=== PATIENT | female | born 1950 | race Caucasian/White ===

== ENCOUNTER → 2018-09-17 12:53 | Emergency (ER) | payer BC ==
[~2018-09-17 12:53] MED LIST: Famotidine IV* 10 MG/ML 2 ML (20 mg) IV SLOW PU ONE; NS 0.9% 1000 ML* 1,000 ML IV ONE
--- NOTE | 2018-09-17 13:26 | ED ---
Allergic Reaction/Systemic - HPI Summary HPI Summary: Patient is a 68 y/o F presenting to ED with complaints of allergic reaction. She was seen at sports medicine today, was given cortisone shot to left hip. She states that she went home, ate salmon and vegetables, began to experience diffuse hives, light-headedness, and hoarse voice. She denies SOB and wheezing but reports having had some throat tightness. Patient went back to sports medicine. Dr. Esposito evaluated patient, she was given 0.3 mg epinephrine. She notes that medication helped. EMS was called, who provided 50 mg Benadryl IVP. She states that she has had cortisone shot 3-4 times previously with no reactions. She reports no urinary Sx. Allergy to trees, grass, and pollen is endorsed. PSHx of wisdom teeth removal, tonsillectomy. No FMHx of cardiac disease, endorses FMHx of prostate CA. On triage, associated severity is rated 2 /10, nothing is noted to aggravate/alleviate Sx. Home medications and allergies are reviewed. Allergies Allergy/AdvReac Type Severity Reaction Status Date / Time No Known Allergies Allergy Verified 11/28/12 13:43 - History of Current Complaint Chief Complaint: EDAllergicReaction Time Seen by Provider: 09/17/18 13:15 Hx Obtained From: Patient Onset/Duration: Sudden Onset, Started hours ago, Resolved Timing: Lasting Hours Severity Currently: Mild - 2/10 Pain Intensity: 2 Pain Scale Used: 0-10 Numeric - 2/10 Location: Diffuse - hives Character: Hives Aggravating Factor(s): Nothing Alleviating Factor(s): Epinephrine Associated Signs And Symptoms: Positive: Lightheadedness, Throat Tightening, Other: - POSITIVE - HOARSE VOICE, HIVES; NEGATIVE - WHEEZING, SOB. Negative: Difficulty Breathing - Allergies/Home Medications Allergies/Adverse Reactions: Allergies Allergy/AdvReac Type Severity Reaction Status Date / Time No Known Allergies Allergy Verified 11/28/12 13:43 PMH/Surg Hx/FS Hx/Imm Hx Cardiovascular History: Denies: Hx Pacemaker/ICD Respiratory History: Reports: Hx Asthma Musculoskeletal History: Denies: Hx Rheumatoid Arthritis, Hx Osteoporosis - OSTEOPENIA Sensory History: Denies: Hx Legally Blind, Hx Deafness, Hx Hearing Aid Opthamlomology History: Denies: Hx Legally Blind EENT History: Denies: Hx Deafness Psychiatric History: Denies: Hx Panic Disorder - Cancer History Hx Chemotherapy: No Hx Radiation Therapy: No - Surgical History Surgery Procedure, Year, and Place: wisdom teeth; TONSILLECTOMY Infectious Disease History: No Infectious Disease History: Denies: Traveled Outside the [place] in Last 30 Days - Family History Known Family History: Positive: Other - FMHx of prostate cancer Negative: Cardiac Disease - Social History Alcohol Use: None Substance Use Type: Reports: None Smoking Status (MU): Never Smoked Tobacco Review of Systems ENT: Other - POSITIVE - THROAT TIGHTNESS, HOARSE VOICE Positive: Other - NEGATIVE - WHEEZING . Negative: Shortness Of Breath Positive: no symptoms reported - URINARY Skin: Other - POSITIVE - DIFFUSE HIVES Neurological: Other - POSITIVE - LIGHT-HEADEDNESS All Other Systems Reviewed And Are Negative: Yes Physical Exam - Summary Physical Exam Summary: Appearance: Well-appearing, no pain distress, well-nourished, normal phonation Skin: Warm, color reflects adequate perfusion, dry, no rash, no urticaria Head: Normal Head/Face inspection, atraumatic Eyes: Conjunctiva clear, ENT: Normal inspection; no uvula, no pharyngeal edema Neck: Supple, no nodes, no JVD Respiratory: Lungs clear, normal breath sounds, no respiratory distress, no wheezes Cardio: RRR, No murmur, pulses normal, brisk capillary refill Abdomen: Soft, nontender Bowel sounds: Present Musculoskeletal: Strength Intact/ROM intact, no calf tenderness, no edema. Psychological: Normal Neuro: Alert, muscle tone normal, no focal deficit Triage Information Reviewed: Yes Vital Signs On Initial Exam: Initial Vitals Temp Pulse Resp BP Pulse Ox 96.9 F 103 18 128/65 97 09/17/18 12:57 09/17/18 12:57 09/17/18 12:57 09/17/18 12:57 09/17/18 12:57 Vital Signs Reviewed: Yes Diagnostics - Vital Signs Vital Signs Temp Pulse Resp BP Pulse Ox 09/17/18 12:57 96.9 F 103 18 128/65 97 - Laboratory Lab Statement: Any lab studies that have been ordered have been reviewed, and results considered in the medical decision making process. Re-Evaluation - Re-Evaluation First Eval Re-Evaluation Time: 14:40 Change: Improved Comment: Patient reports no chest pain, no SOB, hives have resolved. She will be discharged to home, she is agreeable with this. Allergic Reaction Course/Dx - Course Course Of Treatment: Patient is a 68 y/o F presenting to ED with complaints of allergic reaction. She was seen at sports medicine today, was given cortisone shot to left hip. She states that she went home, ate salmon and vegetables, began to experience diffuse hives, light-headedness, and hoarse voice. She denies SOB and wheezing but reports having had some throat tightness. Patient went back to sports medicine. Dr. Esposito evaluated patient, she was given 0.3 mg epinephrine. She notes that medication helped. EMS was called, who provided 50 mg Benadryl IVP. She states that she has had cortisone shot 3-4 times previously with no reactions. She reports no urinary Sx. Allergy to trees, grass , and pollen is endorsed. PSHx of wisdom teeth removal, tonsillectomy. No FMHx of cardiac disease, endorses FMHx of prostate CA. On physical exam, normal phonation, no uvula or pharyngeal edema, no rash, no urticaria, no wheezes. During ED course, patient received fluids and Pepcid 40 mg IV. Patient reports no chest pain, no SOB, hives have resolved. She will be discharged to home, she is agreeable with this. - Diagnoses Provider Diagnoses: Anaphylactic reaction Discharge - Sign-Out/Discharge Documenting (check all that apply): Patient Departure - discharge - Discharge Plan Condition: Stable Disposition: HOME Patient Education Materials: General Allergic Reaction (ED) Referrals: Trina Yoon MD [Primary Care Provider] - 2 Days Additional Instructions: You were given epinephrine 0.3mg and benadryl by Dr. Esposito. In the ER you were given IV normal saline and famotidine (pepcid) as a histamine 2 svetlana. We did not give you IV steroids as we often do for an allergic reaction because you had this reaction after receiving the cortisone injection in your left hip. It would be unusual but you could be allergic to the cortisone, so we will not give further steroids. You could also be allergic to any medications that were included in the cortisone injection such as possibly a local anesthetic like lidocaine. You should check with Dr. Esposito, what other medications were in the cortisone injection. It is also possible that you are allergic to the salmon. So you should avoid all possible allergens until you have further evaluation. You should also continue the pepcid (prescribed to [facility] on [address]) 40mg orally for 5 days, and benadryl (diphenhydramine) 25-50mg orally four times a day (or every 6 hrs) for at least the next 48 hrs and then as needed. Return to the ER if you have any new or worsening symptoms. Dr. Hodgson also recommends that you see an cloth wire weaver, and this constitutes a referral to an cloth wire weaver. - Attestation Statements Document Initiated by Scribe: Yes Documenting Scribe: ARCADIO RODAS Provider For Whom Young is Documenting (Include Credential): LANE HODGSON MD Scribe Attestation: ARCADIO Parker, scribed for LANE HODGSON MD on 09/18/18 at 0003.
[2018-09-17 15:28] VITALS: BP 130/75
== END | disposition home or self-care (01) ==
LOC: ED 12:53
DX: T78.2XXA Anaphylactic shock, unspecified, initial encounter (principal); J45.909 Unspecified asthma, uncomplicated
CPT/HCPCS: 96361; 96374; 99282

== ENCOUNTER 2018-12-03 09:00 | Inpatient (IN) | payer BC ==
--- NOTE | 2018-11-25 14:19 | HP ---
Amended report to enter cosigning physician. HISTORY AND PHYSICAL: DATE OF ADMISSION/SURGERY: 12/03/18. DATE OF OFFICE VISIT: 11/25/18. SURGEON: Deya Perales MD* (dictated by JENNIFER Cardona). PROCEDURE: Left total hip arthroplasty. CHIEF COMPLAINT: Left hip pain. HISTORY OF PRESENT ILLNESS: Ms. Arce is a 68-year-old female with endstage osteoarthritis of the left hip. She has failed conservative treatment and elected to proceed with a left total hip arthroplasty. PAST MEDICAL HISTORY: Asthma. PAST SURGICAL HISTORY: Tonsillectomy, adenoidectomy, and wisdom teeth extraction. CURRENT MEDICATIONS: Tylenol as needed. ALLERGIES: To NSAIDs. FAMILY HISTORY: Family history of pancreatic cancer and dementia. SOCIAL HISTORY: She is a 68-year-old female. She lives with a partner. She does not smoke or use drugs, uses alcohol occasionally. REVIEW OF SYSTEMS: A complete 14-point review of systems was reviewed with the patient. It was all negative and noncontributory. She denies history of DVT, PE, hepatitis, HIV or anesthesia problems. PHYSICAL EXAMINATION GENERAL: She is well developed, well nourished, in no acute distress. VITAL SIGNS: She stands 5 feet 4 inches tall, weighs 184 pounds, her blood pressure 130/90, her heart rate is 96. HEENT: Normocephalic, atraumatic. NECK: Supple. No palpable lymph nodes. PULMONARY: Lungs are clear to auscultation bilaterally. CARDIO: Regular rate and rhythm. Strong S1, S2. ABDOMEN: Soft, nontender, nondistended. MUSCULOSKELETAL: Left lower extremity the skin is intact. There are no open wounds or abrasions. She walks with an antalgic type gait favoring her left hip. She has decreased internal and external rotation of the left hip. She has 2+ dorsalis pedis pulse. She is able to dorsiflex, plantarflex, and has intact sensation. NEUROLOGIC: She is alert and oriented x3. ASSESSMENT AND PLAN: Ms. Arce is a 68-year-old female with endstage osteoarthritis of the left hip. She has failed conservative treatment and elected to proceed with a left total hip arthroplasty. The surgery is scheduled for 12/03/[address] Perales discussed the risks and benefits of surgery at today's visit and all of her questions were answered. She will follow up with Dr. Perales 2 weeks after the surgery. JENNIFER CARDONA [id number]/CPS #: [id number] MTDD
[~2018-12-03 09:00] MED LIST changes: +Acetaminophen IV 1GM/100ML * 1,000 MG/100 ML VIAL IVPB ONE; +Buffered Lidocaine 1% SYRIN* 1 ML/SYRINGE INTRADERM ONE; +Dexamethasone IV* 4 MG/ML 1 ML (4 MG) IV SLOW PU ONE; +Famotidine IV* 10 MG/ML 2 ML (20 mg) IV ONE; -Famotidine IV* 10 MG/ML 2 ML (20 mg) IV SLOW PU ONE; +Gabapentin CAP(*) 300 MG PO ONE; +Lactated Ringers 1000 ML Bag* 1,000 ML IV SCH; -NS 0.9% 1000 ML* 1,000 ML IV ONE
[2018-12-03] MEDS ORDERED: KETAMINE HCL* 50 MG/ML 10 ML VIAL ONE (10:35)
[2018-12-03] MEDS ORDERED: fentaNYL* 50 MCG/ML 2 ML VIAL (100 MCG VIAL) ONE ×2 (10:35→15:35)
[2018-12-03] MEDS ORDERED: Midazolam* 1 MG/ML 5 ML VIAL (5 MG) ONE ×2 (10:35→13:45)
[2018-12-03] MEDS ORDERED: Ondansetron INJ* 2 MG/ML VIAL ONE (10:36)
[2018-12-03] MEDS ORDERED: Propofol* 10 MG/ML 20 ML BTL ONE (10:36)
[2018-12-03] MEDS ORDERED: Dexamethasone IV* 4 MG/ML 1 ML (4 MG) ONE (10:48)
[2018-12-03] MEDS ORDERED: Buffered Lidocaine 1% SYRIN* 1 ML/SYRINGE INTRADERM ONE (10:49)
[2018-12-03] MEDS ORDERED: Gabapentin CAP(*) 300 MG ONE (10:49)
[2018-12-03] MEDS ORDERED: Famotidine IV* 10 MG/ML 2 ML (20 mg) ONE (10:49)
[2018-12-03] MEDS ORDERED: ceFAZolin 2 GM in NS PREMIX(*) 2 GM/100 ML BAG IVPB ONE (10:49)
[2018-12-03] MEDS ORDERED: Acetaminophen IV 1GM/100ML * 100 ML ONE (11:26)
[2018-12-03] MEDS ORDERED: Ropivacaine (OR use only) 2 MG/ML 10 ML ONE (12:02)
[2018-12-03] MEDS ORDERED: ROPIVACAINE 5 MG/ML 30 ML BTL (0.5%) ONE (12:02)
[2018-12-03] MEDS ORDERED: Bupivacaine 0.5% SDV PF* 30ML VIAL ONE (12:33)
[2018-12-03] MEDS ORDERED: Atropine SYRINGE* 0.1 MG/ML 10 ML SYRINGE (1 MG) ONE (12:53)
[2018-12-03] MEDS ORDERED: Naloxone* 0.4 MG/ML 1 ML VIAL IV PRN (13:30)
[2018-12-03] MEDS ORDERED: DiMENhydriNATE IV* 50 MG/ML VIAL IV PUSH PRN (13:30)
[2018-12-03] MEDS ORDERED: Scopolamine 1.5 mg* PATCH TRANSDERM PRN (13:30)
[2018-12-03] MEDS ORDERED: Ondansetron INJ* 2 MG/ML VIAL IV PRN ×2 (13:30→15:41)
[2018-12-03] MEDS ORDERED: HYDROmorphone INJ1* 1 MG/ML SYRINGE IV PRN (13:30)
[2018-12-03] MEDS: fentaNYL* 50 MCG/ML 2 ML VIAL (100 MCG VIAL) IV PRN ×2 (15:35→15:49)
[2018-12-03] MEDS ORDERED: Acetaminophen TAB* 325 MG PO PRN (15:41)
[2018-12-03] MEDS ORDERED: Bisacodyl SUPP* 10 MG SUPP PR PRN (15:41)
[2018-12-03] MEDS ORDERED: oxyCODONE/Acetamin 5/325 MG* TAB PO PRN (15:41)
[2018-12-03] MEDS ORDERED: Morphine 4 MG/ML VIAL (1 ml) 4 MG/ML VIAL IV PRN (15:41)
[2018-12-03] MEDS ORDERED: Magnesium Hydroxide LIQ* 30 ML UDC PO PRN (15:41)
[2018-12-03] MEDS ORDERED: diPHENhydraMINE IV* 50 MG/ML 1 ml VIAL (BENADRYL) IV PRN (15:41)
[2018-12-03] MEDS ORDERED: Albuterol HFA INHALER* 8 gm MDI INH PRN (15:46)
[2018-12-03] MEDS ORDERED: oxyCODONE TAB* 5 MG TAB ONE (16:11)
[2018-12-03] MEDS: oxyCODONE TAB* 5 MG TAB PO PRN ×2 (16:12→20:25)
--- NOTE | 2018-12-03 16:54 | OP ---
Operative Report - Blank - Operative Report Date of Operation: 12/03/18 Note: PARVEZ SIFUENTES 1950 Date Of Surgery: 12/03/18 Deya Perales MD [employer]drin[employer] Machine Operator: Donaldo RODRIGUEZ did help throughout the procedure with preparation of the hip, wound retraction, manipulation of the hip, and wound closure. Anesthesiologist: Maria Luisa Golden MD Anesthesia Type: Spinal Preoperative Diagnosis: Left severe degenerative osteoarthritis of the hip Postoperative Diagnosis: As above Procedure Performed: Left Total Hip Arthroplasty Complications: None Specimen: Femoral head and acetabular reamings sent to pathology. Hardware used: This is uncemented Brett total hip arthroplasty hardware for the femur a size left femoral component, for the acetabulum a size 52E trident II tritanium cluster hole shell with one 15 mm screw, for the insert a size 36 E trident x3 polyethylene insert, and for the femoral head a size 36 - 2.5 ceramic biolox V40 femoral head. Brief history/Indication: PARVEZ SIFUENTES was known in clinic and had a history of severe left hip pain. She failed conservative treatment with anti- inflammatories, pain pills, intra-articular injections and physical therapy. She elected to undergo left total hip arthroplasty due to continued pain and decreased quality of life. Radiographs showed severe end stage osteoarthritis of the hip with bone on bone contact. Informed consent was obtained from the patient. She understood the risks of surgery included but were not limited to: bleeding, infection, damage to nearby structures, intraoperative fracture, nerve palsy, failure of the hardware, early loosening, stiffness or loss of motion, dislocation, leg length discrepancy, anesthesia complications, stroke, heart attack, blood clot and . She wished to proceed. Intra-Operative findings: Intraoperatively the patient was noted to have severe loss of cartilage of the acetabulum and femoral head. Description of the Procedure: PARVEZ SIFUENTES was identified in the preanesthesia unit. Her left hip was marked as the correct operative side. Informed consent was signed and placed in the chart. The patient was taken to the operating room and placed under anesthesia without complication. A kulkarni catheter was placed. The patient was placed on the peg board with all bony prominences well padded. The left lower extremity was prepped and draped in the usual sterile fashion. Preoperative time-out was made to correctly identify the patient, side and site. Appropriate intraoperative antibiotics were given within one hour of incision. A standard posterior incision was made and carried sharply down to the lateral fascia. A new 10 blade was used to make an incision in the fascia in line with the skin incision. A charnley retractor was placed. The piriformis and conjoined tendons were identified and elevated off the posterolateral femur using electrocautery. These were tagged with number 5 Ethibond. Next electrocautery was used to make a posterolateral capsular flap and this was tagged with number 5 Ethibonds. The hip was carefully dislocated. Lesser trochanter to the center of the femoral head was measured at 55 mm. The oscillating saw was used to make the femoral neck cut. The femoral head was carefully removed. The femur was retracted anteriorly and the acetabular retractors were placed. Long-handled knife was used to sharply remove any remaining labrum from the acetabular rim. The acetabulum was sequentially reamed up to a size 51. A bleeding subchondral bone bed was obtained. A trial liner was placed and had excellent fit and stability. A 52E trident II tritanium cluster hole shell with one 15 mm screw was placed and had excellent stability with appropriate anteversion and abduction angle. A size 36E liner was impacted into the acetabular shell. The liner was checked for stability and was stable. Next attention was turned to preparation of the femoral canal. A canal finder was used to enter the proximal femur. The femoral canal was sequentially broached up to a size 4 femoral broach trial. A trial neck and 36 - 2.5 trial femoral head was chosen. Lesser trochanter to center of the femoral head measurement was satisfactory. The hip was reduced and taken through a range of motion. The hip was stable in all positions with good soft tissue tension and appropriate leg lengths. The hip was dislocated and all trials were removed. The final implant chosen was a size 4 accolade II with 127 degree neck. This stem was impacted into the femoral canal without difficulty. The stem was stable with appropriate anteversion. The femoral head chosen was a 36 - 2.5 ceramic femoral head. The head was impacted onto the femoral neck without difficulty. The final lesser trochanter to center of the femoral head measurement was satisfactory. The hip was reduced and taken through a range of motion. The hip was stable in all positions with good soft tissue tension and appropriate leg lengths. The hip was copiously irrigated with sterile saline. The previously tagged capsule and tendons were repaired to the posterolateral femur through two trochanteric drill holes. The lateral fascia layer was closed using number 1 vicryls. The rest of the incision was closed in a layered fashion using 0 and 2-0 vicryls. The skin was closed using 3-0 monocryl suture and Dermabond. Sterile adaptic, 4x4s and paper tape was used to cover the incision. The patients anesthesia was reversed without difficulty. She was taken to the PACU in stable condition. Intended weight-bearing will be as tolerated with posterior hip precautions.
[2018-12-03] MEDS ORDERED: Morphine INJ* 2 MG/ML 1 ML SYRINGE (TWO MG - NEW SYRINGE VERSION) ONE (16:58)
[2018-12-03] MEDS: Lactated Ringers 1000 ML Bag* 1,000 ML IV SCH (17:01)
--- NOTE | 2018-12-03 17:08 | PN ---
Progress Note - Progress Note Date of Service: 12/03/18 Note: resting in bed with moderate left hip pain; able to dorsi flex/plantar flex, 2+ DP pulse and intact sensation, dressing c/d/i
[2018-12-03] MEDS ORDERED: Morphine TAB Extended Release (*) 30 MG TAB.ER ONE (17:51)
[2018-12-03] MEDS: Morphine TAB Extended Release (*) 15 MG TAB.ER PO SCH (17:56)
[2018-12-03] MEDS ORDERED: Morphine TAB Extended Release (*) 30 MG TAB.ER PO SCH (18:00)
[2018-12-03] MEDS: Cyclobenzaprine TAB* 10 MG PO PRN (20:24)
[2018-12-03] MEDS: Docusate CAP* 100 MG PO SCH (20:25)
[2018-12-03] MEDS: Magnesium Hydroxide LIQ* 30 ML UDC PO SCH (20:25)
[2018-12-03] MEDS ORDERED: Estradiol VAGINAL TAB(NF) 10 MCG VAG.TAB VAGINAL SCH (21:00)
[2018-12-03] MEDS: ceFAZolin 1 GM ADVAN(*) 1 GM in NS 0.9% 50 ML* 50 ML IVPB SCH (21:38)
[2018-12-03] MEDS: oxyCODONE/Acetamin 5/325 MG* TAB PO PRN (23:11)
[2018-12-04] MEDS: oxyCODONE TAB* 5 MG TAB PO PRN ×3 (01:36→16:51)
[2018-12-04] MEDS: Lactated Ringers 1000 ML Bag* 1,000 ML IV SCH ×2 (03:45→16:00)
[2018-12-04] MEDS: Cyclobenzaprine TAB* 10 MG PO PRN ×2 (05:19→20:51)
[2018-12-04] MEDS: Morphine TAB Extended Release (*) 15 MG TAB.ER PO SCH ×2 (05:20→16:50)
[2018-12-04] MEDS: ceFAZolin 1 GM ADVAN(*) 1 GM in NS 0.9% 50 ML* 50 ML IVPB SCH ×2 (05:21→13:03)
[2018-12-04] MEDS: oxyCODONE/Acetamin 5/325 MG* TAB PO PRN ×3 (07:53→20:37)
[2018-12-04] MEDS: Vitamin THERAPEUTIC TAB PO SCH (07:53)
[2018-12-04] MEDS: Docusate CAP* 100 MG PO SCH ×2 (07:53→19:51)
[2018-12-04] MEDS: Apixaban* 2.5 MG TAB PO SCH ×2 (07:53→19:51)
[2018-12-04] MEDS: Magnesium Hydroxide LIQ* 30 ML UDC PO SCH ×2 (07:53→19:51)
[2018-12-04 07:57] LABS: Hematocrit 34 % (33-41); Hemoglobin 11.5 g/dL (12.0-16.0); Mean Platelet Volume 7.9 fL (7.4-10.4); Platelet Count 185 10^3/uL (150-450)
[2018-12-04 08:14] LABS: BUN/Creatinine Ratio 21.9 (8-20); Calcium 8.9 mg/dL (8.6-10.3); EGFR African American 95.4 (>60); EGFR Non-African American 78.8 (>60); Potassium 4.1 mmol/L (3.5-5.0)
[2018-12-04] MEDS ORDERED: [UNRECOGNIZED DRUG - OTHER] INH SCH (09:00)
[2018-12-04] MEDS: [UNRECOGNIZED DRUG - OTHER] INH SCH (10:35)
[2018-12-04] MEDS ORDERED: NS 0.9% 1000 ML** 1,000 ML IV ONE (11:15)
--- NOTE | 2018-12-04 12:01 | PN ---
Progress Note - Progress Note Date of Service: 12/04/18 SOAP: Subjective: []Patient seen OOB in chair. Complaining of moderate to severe hip pain. She has not urinated but does not feel distended. Blood pressures running a little soft, but denies dizziness. Denies chest pain or SOB. Objective: [] Vital Signs Temp 97.9 F 12/04/18 11:08 Pulse 80 12/04/18 11:08 Resp 18 12/04/18 11:08 BP 82/46 12/04/18 11:13 Pulse Ox 94 12/04/18 11:08 Intake & Output 12/03/18 12/04/18 12/04/18 18:59 06:59 18:59 Intake Total 2350 1895 720 Output Total 1503 1750 Balance 847 145 720 Weight 176 lb 9.6 oz Intake: IV Fluids 2350 1035 ABX - CEFAZOLIN 55 LR 2300 980 NS 50ML, Cefazolin 2G 50 Oral 860 720 Output: [place] 1503 1750 Other: # Bowel Movements 0 Laboratory Results - last 24 hr 12/04/18 12/04/18 07:43 07:43 Hgb 11.5 L Hct 34 Plt Count 185 MPV 7.9 Sodium 140 Potassium 4.1 Chloride 105 Carbon Dioxide 30 Anion Gap 5 BUN 16 Creatinine 0.73 Est GFR ( Amer) 95.4 Est GFR (Non-Af Amer) 78.8 BUN/Creatinine Ratio 21.9 H Glucose 115 H Calcium 8.9 Left hip dressings are dry +DF left ankle calf non tender and soft sensation intact distal LLE Assessment: []s/p LTH arthroplasty POD #1 Plan: []PT/OT dressing change 12/05 Fluid bolus 1000 cc ordered Posterior hip precautions pain management Possible discharge Friday if stable and pain better managed.
[2018-12-05] MEDS: oxyCODONE TAB* 5 MG TAB PO PRN (00:44)
[2018-12-05] MEDS: oxyCODONE/Acetamin 5/325 MG* TAB PO PRN ×3 (05:55→13:26)
[2018-12-05] MEDS: Morphine TAB Extended Release (*) 15 MG TAB.ER PO SCH (05:56)
[2018-12-05 06:22] LABS: Hematocrit 29 % (33-41); Hemoglobin 10.2 g/dL (12.0-16.0); Mean Platelet Volume 8.5 fL (7.4-10.4); Platelet Count 152 10^3/uL (150-450)
--- NOTE | 2018-12-05 08:56 | PN ---
Progress Note - Progress Note Date of Service: 12/05/18 SOAP: Subjective: Pt is doing well. Pain controlled. Doing well with PT. Denies F/C, CP/SOB, calf pain. Objective: PE- 68 y/o WDWN F NAD, A&Ox3 LLE- dressing changed inc c/d/i, calf soft NT, +DF/PF ankle, +2 DP pulse, SILT distally Vital Signs Temp Pulse Resp BP Pulse Ox 97.9 F 103 18 108/53 98 12/05/18 04:13 12/05/18 04:13 12/05/18 05:56 12/05/18 04:13 12/05/18 04:13 Laboratory Results - last 24 hr 12/05/18 05:28 Hgb 10.2 L Hct 29 L Plt Count 152 MPV 8.5 Assessment: []s/p LTH arthroplasty POD #2 Plan: []PT/OT Posterior hip precautions Percocet Flexaril and MS Contin for pain Eliquis for DVT prophylaxis DC today to home with outpt PT F/U 10-14 days post op with Dr. Perales
[2018-12-05] MEDS: [UNRECOGNIZED DRUG - OTHER] INH SCH (09:25)
[2018-12-05] MEDS: Vitamin THERAPEUTIC TAB PO SCH (09:28)
[2018-12-05] MEDS: Magnesium Hydroxide LIQ* 30 ML UDC PO SCH (09:28)
[2018-12-05] MEDS: Docusate CAP* 100 MG PO SCH (09:28)
[2018-12-05] MEDS: Apixaban* 2.5 MG TAB PO SCH (09:28)
--- NOTE | 2018-12-05 11:38 | DS ---
Orthopedic Discharge Summary - Discharge Summary Date of Admission:12/03/18 Date of Discharge: 12/05/18 Date of Surgery: 12/03/18 Attending Orthopedic Provider: Dr. Perales Pre-operative Diagnosis: Left hip OA Operative Procedure: Left BRIGHT Condition of Patient: Stable History: PARVEZ SIFUENTES is a 68 year old F with years of increasingly severe left hip pain due to OA. Patient has failed conservative management and has elected to undergo a left total hip replacement Hospital Course: PARVEZ was admitted to [facility] on 12/03/18. Patient underwent a left total hip arthroplasty without complication followed by a brief recovery in PACU and transfer to the Short Stay Surgical Unit in stable condition. Our hospitalist service, physical therapy and occupational therapy also participated in this patients care. Post-op day 1: patient was alert and in no acute distress. Dressing was clean, dry and intact. Operative extremity dorsiflexion and plantarflexion intact, sensation intact to light touch distally, DP2+. Post-op day two: dressing was changed, incision was clean , dry and intact. Patient was deemed to be medically and orthopedically stable for discharge home. Physical therapy goals were met. Home Medications Medication Instructions Recorded Confirmed Type Albuterol HFA INHALER* [Ventolin 1 inh INH Q6H PRN 11/25/18 12/03/18 History HFA Inhaler*] Estradiol [Yuvafem] 1 tab VAGINAL BID 11/25/18 12/03/18 History Fluticasone Propionate Diskus 1 inh INH QAM 11/25/18 12/03/18 History [Flovent Diskus] Apixaban* [Eliquis*] 2.5 mg PO BID tab 12/05/18 Rx Cyclobenzaprine TAB* [Flexeril 10 5 mg PO TID PRN tab 12/05/18 Rx MG TAB*] Docusate CAP* [Colace Cap*] 100 mg PO BID cap 12/05/18 Rx Morphine TAB Extended Rel(*) [Ms 15 mg PO Q12H tab.er 12/05/18 Rx Contin(*)] oxyCODONE/Acetamin 5/325 MG* 1 tab PO Q4HR tab MDD 10 12/05/18 Rx [Percocet 5/325 TAB*] oxyCODONE/Acetamin 5/325 MG* 2 tab PO Q4HR tab MDD 10 12/05/18 Rx [Percocet 5/325 TAB*] Discharge Instructions: Patient will be WBAT. Continue posterior hip precautions. Continue physical therapy. Wound care ok to shower post op day three. Redress with gauze and manuel. The patient should call the orthopedic office with increased drainage, redness, increased pain or fever >101.5. Go to the ER with CP or SOB. Regular diet with increased fluids and fiber to prevent constipation. Cont use of colace. Eliquis for DVT prophylaxis. Percocet and cyclobenzaprine and MS Contin for pain. She will require antibiotics prior to dental work in the future. She will follow up 10-14 days post op with Dr. Perales. She can call [phone] for any questions or concerns.
[2018-12-05 12:14] VITALS: BP 123/54
== END 2018-12-05 15:30 | disposition home or self-care (01) | DRG 301 ==
LOC: AA 10:19 → SSU 17:04
PROVIDERS: ADMIT Orthopaedic Surgery Adult Reconstructive Orthopaedic Surgery; ATTEND Orthopaedic Surgery Adult Reconstructive Orthopaedic Surgery
PROC: 0SRB04A Replacement of Left Hip Joint with Ceramic on Polyethylene Synthetic Substitute, Uncemented, Open Approach (ICD-10-PCS; principal; 2018-12-03 13:15)
DX: M16.12 Unilateral primary osteoarthritis, left hip (principal); E78.5 Hyperlipidemia, unspecified; J45.909 Unspecified asthma, uncomplicated; I10 Essential (primary) hypertension; G62.9 Polyneuropathy, unspecified; Z88.8 Allergy status to other drugs, medicaments and biological substances; Z80.0 Family history of malignant neoplasm of digestive organs; Z79.01 Long term (current) use of anticoagulants; Z81.8 Family history of other mental and behavioral disorders; Z72.89 Other problems related to lifestyle; Z82.49 Family history of ischemic heart disease and other diseases of the circulatory system
CPT/HCPCS: 36415; 80048; 85014; 85018; 85049; 88304; 88311; A9270-GY; G8978-GP-CJ; G8979-GP-CI; J0461; J0690; J1100; J2250; J2270; J2405; J2704; J2795; J3010